=== PATIENT | female | born 1955 | race African-American/Black ===

== ENCOUNTER 2017-12-28 11:58 | Inpatient (IN) | payer MEDICARE, MEDICAID ==
[~2017-12-28] VITALS: Ht 175.3 cm; Wt 78.9 kg
[~2017-12-28 11:58] MED LIST: HYDR12.54 PO; METO25TA6 PO; POTA10TA15 MT
[2017-12-28] MEDS ORDERED: SODIUM CHLORIDE 0.9% 1,000 ML IV ONE (13:22)
[2017-12-28 14:03] LABS: BASOPHILS % 0.8 % (0.0-2.0); EOSINOPHILS % 0.1 % (0.0-5.0); HEMATOCRIT. 37.3 % (36.0-48.0); HEMOGLOBIN. 12.5 g/dL (12.0-16.0); MEAN CORPUSCULAR HEMOGLOBIN 27.1 pg (28.0-32.0); MEAN CORPUSCULAR VOLUME 81.1 fL (81.0-99.0); MEAN PLATELET VOLUME 7.5 fl (7.4-10.4); MONOCYTES % 6.7 % (2.0-8.0); NEUTROPHILS % 66.4 % (40.0-76.0); PLATELET 423 x1000/uL (130-400); RED CELL DISTRIBUTION WIDTH 13.8 % (11.6-14.6)
[2017-12-28 14:10] LABS: INR 1.1; PROTHROMBIN TIME 11.9 sec (9.4-11.6)
[2017-12-28 14:11] LABS: CHLORIDE 101 mEq/L (98-107)
[2017-12-28 14:15] LABS: ETHANOL BLOOD < 10 mg/dL
[2017-12-28] MEDS ORDERED: ASPIRIN 325MG TABLET PO ONE (14:45)
[2017-12-28] MEDS ORDERED: SODIUM CHLORIDE 0.9% 1000ML BAG (SEPSIS BOLUS) IV ONE (14:45)
[2017-12-28] MEDS ORDERED: POTASSIUM CHLORIDE 20MEQ TABLET SR PO NR (15:15)
[2017-12-28] MEDS ORDERED: ENOXAPARIN 40MG/0.4ML SYR SUBCUT SCH (15:30)
[2017-12-28] MEDS ORDERED: DIPHENHYDRAMINE 50MG/ML VIAL IV PRN (15:30)
[2017-12-28] MEDS ORDERED: MORPHINE SULFATE 2 MG/ML CPJ (NOT FOR IM USE) IV PRN (15:30)
[2017-12-28] MEDS ORDERED: DOCUSATE SODIUM 100MG CAPSULE PO PRN (15:30)
[2017-12-28] MEDS ORDERED: HYDROCODONE/ACETAMINOPHEN 5/325MG TABLET PO PRN ×2 (15:30→17:15)
[2017-12-28] MEDS ORDERED: LORAZEPAM 2MG/ML CPJ IV PRN ×2 (15:30→17:15)
[2017-12-28] MEDS ORDERED: CLONIDINE 0.1MG TABLET PO PRN (15:30)
[2017-12-28] MEDS ORDERED: IPRATROPIUM/ALBUTEROL 0.5-3(2.5)MG/3ML NEB INH PRN (16:54)
[2017-12-28] MEDS ORDERED: MAGNESIUM/ALUMINUM HYDROXIDE/SIMETHICONE 30ML UDC PO PRN (16:55)
[2017-12-28] MEDS ORDERED: NA PHOS,M-B/NA PHOS,DI-BA ENEMA 118ML PR PRN (16:55)
[2017-12-28] MEDS ORDERED: GUAIFENESIN 200MG/10ML SUGAR FREE UDC PO PRN (16:55)
[2017-12-28] MEDS ORDERED: ONDANSETRON HCL 4MG/2ML VIAL IV PRN (16:56)
[2017-12-28] MEDS ORDERED: ACETAMINOPHEN 325MG TABLET PO PRN (16:56)
[2017-12-28 16:57] LABS: CHLORIDE 102 mEq/L (98-107)
[2017-12-28 17:27] LABS: CLARITY URINE CLEAR (CLEAR); COLOR URINE YELLOW (YELLOW); KETONES URINE 2+ (NEGATIVE); LEUKOCYTE ESTERASE URINE NEGATIVE (NEGATIVE); NITRITE URINE NEGATIVE (NEGATIVE); OCCULT BLOOD URINE NEGATIVE (NEGATIVE); PROTEIN URINE NEGATIVE (NEGATIVE)
[2017-12-28] MEDS ORDERED: MAGNESIUM 1 G PREMIX 100 ML IV ONE (17:45)
[2017-12-28 17:46] VITALS: BP 126/56
[2017-12-28 17:47] LABS: METHADONE URINE SCREEN NEGATIVE (NEGATIVE)
[2017-12-28 17:48] LABS: *AMPHETAMINES SCREEN URINE NEGATIVE (NEGATIVE); *BARBITURATES SCREEN URINE NEGATIVE (NEGATIVE); *BENZODIAZEPINES SCREEN URINE NEGATIVE (NEGATIVE); *COCAINE SCREEN URINE NEGATIVE (NEGATIVE); CANNABINOID URINE SCREEN NEGATIVE (NEGATIVE); OPIATES URINE SCREEN NEGATIVE (NEGATIVE); PHENCYCLIDINE URINE SCREEN NEGATIVE (NEGATIVE)
[2017-12-28 18:00] VITALS: BP 126/56
[2017-12-28] MEDS: FOLIC ACID 1MG TABLET PO SCH (18:37)
[2017-12-28] MEDS ORDERED: MORPHINE SULFATE 4 MG/ML CPJ (NOT FOR IM USE) IV PRN (18:45)
[2017-12-28 20:00] VITALS: BP 148/83
[2017-12-28] MEDS: ENOXAPARIN 40MG/0.4ML SYR SUBCUT SCH (20:40)
[2017-12-28] MEDS: DEXT 5%/0.45% NACL 1000ML 1,000 ML IV SCH (20:58)
[2017-12-28] MEDS ORDERED: DEXTROSE 50% WATER 50ML SYRINGE IV PRN (21:30)
[2017-12-28] MEDS: CHLORDIAZEPOXIDE 25MG CAPSULE PO SCH (21:58)
[2017-12-28 22:00] VITALS: BP 127/91
[2017-12-29] VITALS (12 sets, daily range): BP systolic 93–135; BP diastolic 50–102
[2017-12-29] MEDS: CHLORDIAZEPOXIDE 25MG CAPSULE PO SCH (06:01)
[2017-12-29] MEDS: BLOOD SUGAR DIAGNOSTIC STRIP TEST SCH ×4 (06:09→21:33)
[2017-12-29] MEDS: INSULIN LISPRO 100 UNITS/ML SUBCUT SCH ×4 (07:20→21:00)
[2017-12-29] MEDS: DEXT 5%/0.45% NACL 1000ML 1,000 ML IV SCH ×2 (08:09→21:39)
[2017-12-29] MEDS: FOLIC ACID 1MG TABLET PO SCH (08:33)
[2017-12-29] MEDS: ASPIRIN 81MG EC TABLET PO SCH (08:33)
[2017-12-29] MEDS ORDERED: ASPIRIN 81MG EC TABLET PO SCH (09:00)
[2017-12-29] MEDS ORDERED: MAGNESIUM 2 G PREMIX 50 ML IV NR (10:00)
[2017-12-29] MEDS ORDERED: POTASSIUM CHLORIDE 20MEQ TABLET SR PO NR (10:00)
[2017-12-29] MEDS: METOPROLOL TARTRATE 50MG TABLET PO SCH ×2 (10:40→21:00)
[2017-12-29] MEDS ORDERED: CHLORDIAZEPOXIDE 25MG CAPSULE PO PRN (13:00)
[2017-12-29] MEDS: ENOXAPARIN 40MG/0.4ML SYR SUBCUT SCH (19:44)
[2017-12-30] VITALS (12 sets, daily range): BP systolic 91–130; BP diastolic 35–87
[2017-12-30] MEDS: BLOOD SUGAR DIAGNOSTIC STRIP TEST SCH ×4 (06:45→21:29)
[2017-12-30 06:47] LABS: BASOPHILS % 0.4 % (0.0-2.0); EOSINOPHILS % 0.1 % (0.0-5.0); HEMATOCRIT. 33.5 % (36.0-48.0); HEMOGLOBIN. 11.3 g/dL (12.0-16.0); LYMPHOCYTES % 39.5 % (20.0-50.0); MEAN CORPUSCULAR HEMOGLOBIN 27.1 pg (28.0-32.0); MEAN CORPUSCULAR VOLUME 80.1 fL (81.0-99.0); MEAN PLATELET VOLUME 8.1 fl (7.4-10.4); MONOCYTES % 7.1 % (2.0-8.0); NEUTROPHILS % 52.9 % (40.0-76.0); PLATELET 334 x1000/uL (130-400); RED BLOOD CELL COUNT 4.19 mill/uL (4.2-5.4)
[2017-12-30 07:08] LABS: CHLORIDE 97 mEq/L (98-107)
[2017-12-30] MEDS: INSULIN LISPRO 100 UNITS/ML SUBCUT SCH ×4 (07:20→21:00)
[2017-12-30 07:22] LABS: CREATINE KINASE MB FRACTION 2.5 ng/mL (0.5-3.6)
[2017-12-30] MEDS ORDERED: POTASSIUM CHLORIDE 20MEQ/PACKET PO SCH (08:15)
[2017-12-30] MEDS: ASPIRIN 81MG EC TABLET PO SCH (08:19)
[2017-12-30] MEDS: FOLIC ACID 1MG TABLET PO SCH (08:19)
[2017-12-30] MEDS: METOPROLOL TARTRATE 50MG TABLET PO SCH ×2 (08:19→21:00)
[2017-12-30] MEDS: DEXT 5%/0.45% NACL 1000ML 1,000 ML IV SCH ×2 (10:28→21:44)
[2017-12-30] MEDS: LISINOPRIL 2.5MG TABLET PO SCH (13:08)
[2017-12-30] MEDS: ENOXAPARIN 40MG/0.4ML SYR SUBCUT SCH (20:02)
[2017-12-30] MEDS: ATORVASTATIN CALCIUM 10MG TABLET PO SCH (21:28)
[2017-12-31] VITALS (10 sets, daily range): BP systolic 104–143; BP diastolic 64–85
[2017-12-31 06:32] LABS: BASOPHILS % 0.2 % (0.0-2.0); EOSINOPHILS % 0.2 % (0.0-5.0); HEMATOCRIT. 32.7 % (36.0-48.0); HEMOGLOBIN. 10.9 g/dL (12.0-16.0); LYMPHOCYTES % 31.1 % (20.0-50.0); MEAN CORPUSCULAR HEMOGLOBIN 26.6 pg (28.0-32.0); MEAN CORPUSCULAR VOLUME 79.5 fL (81.0-99.0); MEAN PLATELET VOLUME 8.2 fl (7.4-10.4); MONOCYTES % 6.7 % (2.0-8.0); NEUTROPHILS % 61.8 % (40.0-76.0); PLATELET 315 x1000/uL (130-400); RED BLOOD CELL COUNT 4.11 mill/uL (4.2-5.4)
[2017-12-31] MEDS: BLOOD SUGAR DIAGNOSTIC STRIP TEST SCH ×4 (06:54→21:09)
[2017-12-31 07:00] LABS: CHLORIDE 98 mEq/L (98-107)
[2017-12-31] MEDS: INSULIN LISPRO 100 UNITS/ML SUBCUT SCH ×4 (07:20→21:00)
[2017-12-31] MEDS: LISINOPRIL 2.5MG TABLET PO SCH (08:11)
[2017-12-31] MEDS: METOPROLOL TARTRATE 50MG TABLET PO SCH ×2 (08:11→21:00)
[2017-12-31] MEDS: FOLIC ACID 1MG TABLET PO SCH (08:11)
[2017-12-31] MEDS: ASPIRIN 81MG EC TABLET PO SCH (08:11)
[2017-12-31] MEDS ORDERED: POTASSIUM CHLORIDE 20MEQ TABLET SR PO SCH ×2 (08:30→13:00)
[2017-12-31] MEDS: DEXT 5%/0.45% NACL 1000ML 1,000 ML IV SCH (13:29)
[2017-12-31 18:30] LABS: BG BASE EXCESS -6.2 mmol/L (-2.0-2.0); BG CARBOXYHEMOGLOBIN 0.3 % (0.5-1.5); BG DEOXYHEMOGLOBIN 1.2 % (0.0-5.0); BG HCO3 ACT 12.7 mmol/L (22.0-26.0); BG METHEMOGLOBIN 0.2 % (0.0-1.5); BG OXYGEN SATURATION 98.8 % (92.0-98.5); BG OXYHEMOGLOBIN 98.3 % (94.0-97.0); BG PH 7.577 (7.350-7.450); BG PO2 144.9 mmHg (75.0-100.0); BG SAMPLE SITE RIGHT RADIAL; BG TOTAL HEMOGLOBIN 12.5 g/dL (12.0-18.0); BG VENT MODE NASAL CANNULA
[2017-12-31 18:41] LABS: BASOPHILS % 0.6 % (0.0-2.0); EOSINOPHILS % 0.2 % (0.0-5.0); HEMATOCRIT. 35.7 % (36.0-48.0); LYMPHOCYTES % 28.5 % (20.0-50.0); MEAN CORPUSCULAR HEMOGLOBIN 26.9 pg (28.0-32.0); MONOCYTES % 6.6 % (2.0-8.0); NEUTROPHILS % 64.1 % (40.0-76.0); PLATELET 343 x1000/uL (130-400); RED BLOOD CELL COUNT 4.46 mill/uL (4.2-5.4); RED CELL DISTRIBUTION WIDTH 13.8 % (11.6-14.6)
[2017-12-31 18:51] LABS: INR 1.1; PARTIAL THROMBOPLASTIN TIME 26.7 sec (23.4-31.0); PROTHROMBIN TIME 11.1 sec (9.4-11.6)
[2017-12-31] MEDS: ENOXAPARIN 40MG/0.4ML SYR SUBCUT SCH (20:20)
[2017-12-31] MEDS: ATORVASTATIN CALCIUM 10MG TABLET PO SCH (21:10)
[2018-01-01] VITALS (12 sets, daily range): BP systolic 89–121; BP diastolic 45–75
[2018-01-01] MEDS ORDERED: MVI, ADULT NO.1 10 ML in DEXT 5%/0.45% NACL 1000ML 1,000 ML IV SCH ×2 (02:00)
[2018-01-01] MEDS: DEXT 5%/0.45% NACL 1000ML 1,000 ML IV SCH ×2 (02:15→20:12)
[2018-01-01] MEDS: BLOOD SUGAR DIAGNOSTIC STRIP TEST SCH ×4 (06:31→20:53)
[2018-01-01 06:55] LABS: CHLORIDE 98 mEq/L (98-107)
[2018-01-01 07:00] LABS: BASOPHILS % 0.3 % (0.0-2.0); EOSINOPHILS % 0.8 % (0.0-5.0); HEMATOCRIT. 32.6 % (36.0-48.0); MEAN CORPUSCULAR HEMOGLOBIN 27.2 pg (28.0-32.0); MEAN CORPUSCULAR VOLUME 80.4 fL (81.0-99.0); MONOCYTES % 5.6 % (2.0-8.0); NEUTROPHILS % 67.3 % (40.0-76.0); PLATELET 297 x1000/uL (130-400); RED BLOOD CELL COUNT 4.05 mill/uL (4.2-5.4); RED CELL DISTRIBUTION WIDTH 14.1 % (11.6-14.6)
[2018-01-01] MEDS: INSULIN LISPRO 100 UNITS/ML SUBCUT SCH ×4 (07:20→20:53)
[2018-01-01] MEDS: FOLIC ACID 1MG TABLET PO SCH (08:40)
[2018-01-01] MEDS: ASPIRIN 81MG EC TABLET PO SCH (08:40)
[2018-01-01] MEDS: METOPROLOL TARTRATE 50MG TABLET PO SCH ×2 (08:43→20:54)
[2018-01-01] MEDS: LISINOPRIL 2.5MG TABLET PO SCH (08:44)
[2018-01-01] MEDS: POTASSIUM CHLORIDE 20MEQ TABLET SR PO SCH (08:48)
[2018-01-01] MEDS ORDERED: VANCOMYCIN 1500MG in DEXTROSE 5% WATER 250ML IV NR (20:00)
[2018-01-01] MEDS: ENOXAPARIN 40MG/0.4ML SYR SUBCUT SCH (20:12)
[2018-01-01] MEDS: ATORVASTATIN CALCIUM 10MG TABLET PO SCH (21:25)
[2018-01-02] VITALS (12 sets, daily range): BP systolic 90–112; BP diastolic 49–66
[2018-01-02] MEDS: DEXT 5%/0.45% NACL 1000ML 1,000 ML IV SCH ×2 (04:55→17:58)
[2018-01-02] MEDS: BLOOD SUGAR DIAGNOSTIC STRIP TEST SCH ×4 (06:50→20:11)
[2018-01-02] MEDS: INSULIN LISPRO 100 UNITS/ML SUBCUT SCH ×4 (07:20→20:26)
[2018-01-02] MEDS ORDERED: VANCOMYCIN 1 G PREMIX 200 ML IV SCH (08:00)
[2018-01-02 08:16] LABS: BASOPHILS % 0.3 % (0.0-2.0); EOSINOPHILS % 0.4 % (0.0-5.0); HEMATOCRIT. 29.4 % (36.0-48.0); HEMOGLOBIN. 9.6 g/dL (12.0-16.0); LYMPHOCYTES % 19.5 % (20.0-50.0); MEAN CORPUSCULAR HEMOGLOBIN 26.5 pg (28.0-32.0); MEAN CORPUSCULAR VOLUME 80.7 fL (81.0-99.0); MEAN PLATELET VOLUME 8.4 fl (7.4-10.4); MONOCYTES % 5.2 % (2.0-8.0); NEUTROPHILS % 74.6 % (40.0-76.0); PLATELET 259 x1000/uL (130-400); RED BLOOD CELL COUNT 3.64 mill/uL (4.2-5.4); RED CELL DISTRIBUTION WIDTH 13.9 % (11.6-14.6)
[2018-01-02] MEDS: ASPIRIN 81MG EC TABLET PO SCH (08:21)
[2018-01-02] MEDS: POTASSIUM CHLORIDE 20MEQ TABLET SR PO SCH (08:21)
[2018-01-02] MEDS: FOLIC ACID 1MG TABLET PO SCH (08:22)
[2018-01-02] MEDS: METOPROLOL TARTRATE 50MG TABLET PO SCH (08:22)
[2018-01-02] MEDS: LISINOPRIL 2.5MG TABLET PO SCH (08:22)
[2018-01-02 08:23] LABS: AMMONIA 17 uMol/L (<32)
[2018-01-02 08:36] LABS: CHLORIDE 101 mEq/L (98-107)
[2018-01-02 08:45] LABS: LDL CHOLESTEROL 32 mg/dL (5-100)
[2018-01-02 08:46] LABS: HDL CHOLESTEROL 25 mg/dL (40-59)
[2018-01-02] MEDS ORDERED: LIDOCAINE HCL/PF 1% 10 MG/ML 5ML VIAL ONE (09:25)
[2018-01-02] MEDS ORDERED: SODIUM BICARBONATE 4% (2.4MEQ) 5ML VIAL IV ONE (09:26)
[2018-01-02 10:29] LABS: BG BASE EXCESS -4.4 mmol/L (-2.0-2.0); BG CARBOXYHEMOGLOBIN 0.2 % (0.5-1.5); BG HCO3 ACT 18.7 mmol/L (22.0-26.0); BG METHEMOGLOBIN 0.1 % (0.0-1.5); BG OXYHEMOGLOBIN 98.7 % (94.0-97.0); BG PCO2 27.8 mmHg (35.0-45.0); BG PH 7.445 (7.350-7.450); BG PO2 152.3 mmHg (75.0-100.0); BG SAMPLE SITE RIGHT RADIAL; BG TOTAL HEMOGLOBIN 10.4 g/dL (12.0-18.0); BG VENT MODE NASAL CANNULA
[2018-01-02] MEDS: VANCOMYCIN 1250MG in DEXTROSE 5% WATER 250ML IV SCH (17:57)
[2018-01-02] MEDS: ENOXAPARIN 40MG/0.4ML SYR SUBCUT SCH (20:22)
[2018-01-02] MEDS: CARVEDILOL 6.25 MG TABLET PO SCH (21:00)
[2018-01-02] MEDS: ATORVASTATIN CALCIUM 10MG TABLET PO SCH (22:31)
[2018-01-03] VITALS (13 sets, daily range): BP systolic 99–127; BP diastolic 50–74
[2018-01-03] MEDS: BLOOD SUGAR DIAGNOSTIC STRIP TEST SCH ×4 (05:48→21:46)
[2018-01-03] MEDS: VANCOMYCIN 1250MG in DEXTROSE 5% WATER 250ML IV SCH (05:50)
[2018-01-03] MEDS: INSULIN LISPRO 100 UNITS/ML SUBCUT SCH ×4 (07:20→21:00)
[2018-01-03] MEDS: FOLIC ACID 1MG TABLET PO SCH (08:16)
[2018-01-03] MEDS: POTASSIUM CHLORIDE 20MEQ TABLET SR PO SCH (08:16)
[2018-01-03] MEDS: ASPIRIN 81MG EC TABLET PO SCH (08:16)
[2018-01-03] MEDS: LISINOPRIL 2.5MG TABLET PO SCH (08:18)
[2018-01-03] MEDS: CARVEDILOL 6.25 MG TABLET PO SCH ×2 (08:18→21:00)
[2018-01-03] MEDS: DEXT 5%/0.45% NACL 1000ML 1,000 ML IV SCH (08:19)
[2018-01-03] MEDS: ATORVASTATIN CALCIUM 10MG TABLET PO SCH (21:52)
[2018-01-03] MEDS: ENOXAPARIN 40MG/0.4ML SYR SUBCUT SCH (21:52)
== END 2018-01-03 22:29 | DRG 280 ==
LOC: ER 12:26 → 3WST 14:43 → EDBEDREQSVC 14:46 → EDBEDREQTM 14:47 → EDBEDREQ 14:47 → ENRESERV 15:02 → ER 17:10
PROVIDERS: ADMIT Internal Medicine; ATTEND Internal Medicine
PROC: 02HV33Z Insertion of Infusion Device into Superior Vena Cava, Percutaneous Approach (ICD-10-PCS; principal; 2018-01-02)
PROC: B5181ZA Fluoroscopy of Superior Vena Cava using Low Osmolar Contrast, Guidance (ICD-10-PCS; 2018-01-02)
PROC: B548ZZA Ultrasonography of Superior Vena Cava, Guidance (ICD-10-PCS; 2018-01-02)
DX: I21.4 Non-ST elevation (NSTEMI) myocardial infarction (principal); G93.40 Encephalopathy, unspecified; F10.239 Alcohol dependence with withdrawal, unspecified; I47.1 Supraventricular tachycardia; I50.20 Unspecified systolic (congestive) heart failure; E87.6 Hypokalemia; E78.5 Hyperlipidemia, unspecified; I11.0 Hypertensive heart disease with heart failure; I25.10 Atherosclerotic heart disease of native coronary artery without angina pectoris; I25.5 Ischemic cardiomyopathy; I25.2 Old myocardial infarction; Z79.899 Other long term (current) drug therapy; Z86.73 Personal history of transient ischemic attack (TIA), and cerebral infarction without residual deficits; Z88.5 Allergy status to narcotic agent
CPT/HCPCS: 36415; 36569; 36600; 51702; 70450; 71045; 76937; 77001; 80048; 80053; 80061; 80305; 81003; 82140; 82375; 82553; 82805; 82962; 83605; 83690; 83735; 84484; 85025; 85384; 85610; 85730; 86850; 86900; 87040; 87077; 87086; 92523; 92610; 93005; 93306; 96360; 96361; 97112; 97162; 97166; 97530; 99291; A6261; C1725; G0482; J1650; J1815; J3370; J3475; J3490; J7030; J7060; A4315

== ENCOUNTER 2019-04-13 18:59 | Inpatient (IN) | payer MEDICARE, MEDICAID ==
[~2019-04-13] VITALS: Ht 176.5 cm; Wt 62.1 kg
[2019-04-13] MEDS ORDERED: SODIUM CHLORIDE 0.9% 1,000 ML IV ONE (20:14)
[2019-04-13 20:36] LABS: BASOPHILS % 0.2 % (0.0-2.0); CHLORIDE 101 mEq/L (98-107); EOSINOPHILS % 0.1 % (0.0-5.0); LYMPHOCYTES % 25.5 % (20.0-50.0); MEAN CORPUSCULAR VOLUME 81.1 fL (81.0-99.0); MEAN PLATELET VOLUME 8.1 fl (7.4-10.4); MONOCYTES % 14.4 % (2.0-8.0); NEUTROPHILS % 59.8 % (40.0-76.0); PLATELET 352 x1000/uL (130-400); RED BLOOD CELL COUNT 4.45 mill/uL (4.2-5.4); RED CELL DISTRIBUTION WIDTH 13.5 % (11.6-14.6)
[2019-04-13] MEDS ORDERED: ASPIRIN 325MG EC TABLET PO ONE (22:45)
[2019-04-13] MEDS ORDERED: ACETAMINOPHEN 325MG TABLET PO ONE (22:45)
[2019-04-13] MEDS ORDERED: LORAZEPAM 2MG/ML CPJ IV PRN (23:15)
[2019-04-13] MEDS ORDERED: IPRATROPIUM/ALBUTEROL 0.5-3(2.5)MG/3ML NEB HHN PRN (23:15)
[2019-04-13] MEDS ORDERED: CLONIDINE 0.1MG TABLET PO PRN (23:15)
[2019-04-13] MEDS ORDERED: GUAIFENESIN 200MG/10ML SUGAR FREE UDC PO PRN (23:15)
[2019-04-13] MEDS ORDERED: HYDROCODONE/ACETAMINOPHEN 10/325MG TABLET PO PRN (23:15)
[2019-04-13] MEDS ORDERED: ONDANSETRON HCL 4MG/2ML INJ IV PRN (23:15)
[2019-04-13] MEDS ORDERED: MORPHINE SULFATE 2 MG/ML CPJ (NOT FOR IM USE) IV PRN (23:15)
[2019-04-13] MEDS ORDERED: NA PHOS,M-B/NA PHOS,DI-BA ENEMA 118ML PR PRN (23:15)
[2019-04-13] MEDS ORDERED: HYDRALAZINE 20MG/ML VIAL IV PRN (23:15)
[2019-04-13] MEDS ORDERED: MAGNESIUM/ALUMINUM HYDROXIDE/SIMETHICONE 30ML UDC PO PRN (23:15)
[2019-04-13] MEDS ORDERED: DIPHENHYDRAMINE 50MG/ML VIAL IV PRN (23:15)
[2019-04-13] MEDS ORDERED: POTASSIUM CHLORIDE 20MEQ TABLET SR PO NR (23:15)
[2019-04-14 02:29] VITALS: BP 100/66
[2019-04-14] MEDS ORDERED: ASPI-1393 PO (02:56)
[2019-04-14] MEDS ORDERED: METO-539 PO (02:56)
[2019-04-14] MEDS ORDERED: ATOR10TA PO (02:56)
[2019-04-14] MEDS ORDERED: FAMO20TA8 PO (02:56)
[2019-04-14] MEDS ORDERED: ASCO500P18 PO (02:56)
[2019-04-14] MEDS ORDERED: TRAM50TA3 PO (02:56)
[2019-04-14] MEDS: ACETAMINOPHEN 325MG TABLET PO PRN ×2 (03:19→12:01)
[2019-04-14 04:00] VITALS: BP 112/79
[2019-04-14] MEDS: SODIUM CHLORIDE 0.9% INJ 3ML FLUSH IVF SCH ×3 (05:47→21:53)
[2019-04-14 06:35] LABS: HEMATOCRIT. 34.9 % (36.0-48.0); HEMOGLOBIN. 11.6 g/dL (12.0-16.0); MEAN CORPUSCULAR HEMOGLOBIN 27.2 pg (28.0-32.0); MEAN CORPUSCULAR VOLUME 82.2 fL (81.0-99.0); MEAN PLATELET VOLUME 8.2 fl (7.4-10.4); PLATELET 304 x1000/uL (130-400); RED BLOOD CELL COUNT 4.25 mill/uL (4.2-5.4); RED CELL DISTRIBUTION WIDTH 13.8 % (11.6-14.6)
[2019-04-14 06:55] LABS: CHLORIDE 106 mEq/L (98-107)
[2019-04-14 07:09] LABS: LDL CHOLESTEROL 44 mg/dL (5-100)
[2019-04-14 07:10] LABS: CREATINE KINASE 109 IU/L (26-192)
[2019-04-14 07:11] LABS: CREATINE KINASE MB FRACTION < 1.0 ng/mL (0.5-3.6); HDL CHOLESTEROL 28 mg/dL (40-59); T4 FREE 1.27 ng/dL (0.76-1.46)
[2019-04-14 08:00] VITALS: BP 105/71
[2019-04-14 12:00] VITALS: BP 110/79
[2019-04-14 16:00] VITALS: BP 108/84
[2019-04-14 16:22] LABS: PLATELET ESTIMATE NORMAL
[2019-04-14 18:18] LABS: CREATINE KINASE 92 IU/L (26-192)
[2019-04-14 18:19] LABS: CREATINE KINASE MB FRACTION < 1.0 ng/mL (0.5-3.6)
[2019-04-14 20:00] VITALS: BP 97/64
[2019-04-15] VITALS (7 sets, daily range): BP systolic 90–121; BP diastolic 62–84
[2019-04-15] MEDS: ACETAMINOPHEN 325MG TABLET PO PRN ×2 (03:29→12:27)
[2019-04-15] MEDS: SODIUM CHLORIDE 0.9% INJ 3ML FLUSH IVF SCH ×3 (06:38→21:28)
[2019-04-15 07:59] LABS: VITAMIN B12 SERUM 1001 pg/mL (211-911)
[2019-04-15] MEDS: ENOXAPARIN 30MG/0.3ML SYR SUBCUT SCH (11:11)
[2019-04-16] VITALS: BP 108/68
[2019-04-16 04:00] VITALS: BP 104/66
[2019-04-16] MEDS: SODIUM CHLORIDE 0.9% INJ 3ML FLUSH IVF SCH ×3 (05:22→20:57)
[2019-04-16 07:17] LABS: HIV SCREEN 4G Non Reactive (Non Reactive)
[2019-04-16 08:00] VITALS: BP 105/71
[2019-04-16] MEDS: CLOPIDOGREL 75MG TABLET PO SCH (09:19)
[2019-04-16] MEDS: ENOXAPARIN 30MG/0.3ML SYR SUBCUT SCH (09:19)
[2019-04-16] MEDS: ACETAMINOPHEN 325MG TABLET PO PRN ×2 (09:30→20:56)
[2019-04-16 12:00] VITALS: BP 110/74
[2019-04-16 16:00] VITALS: BP 99/59
[2019-04-16 20:00] VITALS: BP 102/67
[2019-04-17] VITALS: BP 97/61
[2019-04-17 04:00] VITALS: BP 102/66
[2019-04-17] MEDS: SODIUM CHLORIDE 0.9% INJ 3ML FLUSH IVF SCH ×2 (05:57→22:22)
[2019-04-17 07:44] LABS: BASOPHILS % 0.2 % (0.0-2.0); EOSINOPHILS % 0.1 % (0.0-5.0); HEMATOCRIT. 34.9 % (36.0-48.0); HEMOGLOBIN. 11.4 g/dL (12.0-16.0); LYMPHOCYTES % 15.2 % (20.0-50.0); MEAN CORPUSCULAR HEMOGLOBIN 26.9 pg (28.0-32.0); MEAN CORPUSCULAR VOLUME 82.5 fL (81.0-99.0); MEAN PLATELET VOLUME 7.5 fl (7.4-10.4); MONOCYTES % 7.3 % (2.0-8.0); NEUTROPHILS % 77.2 % (40.0-76.0); PLATELET 500 x1000/uL (130-400); RED BLOOD CELL COUNT 4.23 mill/uL (4.2-5.4); RED CELL DISTRIBUTION WIDTH 13.9 % (11.6-14.6)
[2019-04-17 08:00] VITALS: BP 105/67
[2019-04-17 08:01] LABS: CHLORIDE 103 mEq/L (98-107)
[2019-04-17] MEDS: CLOPIDOGREL 75MG TABLET PO SCH (09:42)
[2019-04-17] MEDS: ENOXAPARIN 30MG/0.3ML SYR SUBCUT SCH (09:42)
[2019-04-17 12:00] VITALS: BP 110/74
[2019-04-17] MEDS: ACETAMINOPHEN 325MG TABLET PO PRN ×2 (14:24→22:23)
[2019-04-17 16:00] VITALS: BP 98/63
[2019-04-17 20:00] VITALS: BP 104/69
[2019-04-18] VITALS: BP 110/68
[2019-04-18] MEDS: LEVOFLOXACIN 500MG PREMIX 100 ML IV SCH (00:35)
[2019-04-18 04:00] VITALS: BP 102/67
[2019-04-18 06:32] LABS: CLARITY URINE TURBID (CLEAR); COLOR URINE YELLOW (YELLOW); KETONES URINE NEGATIVE (NEGATIVE); LEUKOCYTE ESTERASE URINE 3+ (NEGATIVE); NITRITE URINE NEGATIVE (NEGATIVE); OCCULT BLOOD URINE 2+ (NEGATIVE); PROTEIN URINE 2+ (NEGATIVE); SPECIFIC GRAVITY URINE 1.014 (1.005-1.030)
[2019-04-18] MEDS: SODIUM CHLORIDE 0.9% INJ 3ML FLUSH IVF SCH ×3 (06:43→19:51)
[2019-04-18 08:00] VITALS: BP 94/65
[2019-04-18] MEDS: CLOPIDOGREL 75MG TABLET PO SCH (08:56)
[2019-04-18] MEDS: ENOXAPARIN 30MG/0.3ML SYR SUBCUT SCH (08:56)
[2019-04-18] MEDS: ACETAMINOPHEN 325MG TABLET PO PRN ×2 (09:04→19:51)
[2019-04-18 12:00] VITALS: BP 100/62
[2019-04-18 16:00] VITALS: BP 121/76
[2019-04-18 20:00] VITALS: BP 106/63
[2019-04-19 00:13] VITALS: BP 129/75
[2019-04-19] MEDS: LEVOFLOXACIN 500MG PREMIX 100 ML IV SCH (00:26)
[2019-04-19 04:00] VITALS: BP 104/70
[2019-04-19] MEDS: SODIUM CHLORIDE 0.9% INJ 3ML FLUSH IVF SCH ×3 (05:59→21:18)
[2019-04-19 07:49] VITALS: BP 100/60
[2019-04-19] MEDS: ACETAMINOPHEN 325MG TABLET PO PRN ×3 (08:51→21:26)
[2019-04-19] MEDS: ENOXAPARIN 30MG/0.3ML SYR SUBCUT SCH (08:51)
[2019-04-19] MEDS: CLOPIDOGREL 75MG TABLET PO SCH (08:51)
[2019-04-19 12:26] VITALS: BP 110/61
[2019-04-19] MEDS: GABAPENTIN 100MG CAPSULE PO SCH (16:09)
[2019-04-19 16:14] VITALS: BP 88/55
[2019-04-19 20:00] VITALS: BP 114/75
[2019-04-20] VITALS (8 sets, daily range): BP systolic 83–106; BP diastolic 48–66
[2019-04-20] MEDS: LEVOFLOXACIN 500MG PREMIX 100 ML IV SCH (01:02)
[2019-04-20] MEDS ORDERED: HYDROCODONE/ACETAMINOPHEN 5/325MG TABLET PO PRN (04:30)
[2019-04-20] MEDS: SODIUM CHLORIDE 0.9% INJ 3ML FLUSH IVF SCH ×3 (06:31→22:08)
[2019-04-20 07:54] LABS: BASOPHILS % 0.4 % (0.0-2.0); EOSINOPHILS % 0.7 % (0.0-5.0); HEMOGLOBIN. 11.1 g/dL (12.0-16.0); MEAN CORPUSCULAR HEMOGLOBIN 27.2 pg (28.0-32.0); MEAN CORPUSCULAR VOLUME 80.6 fL (81.0-99.0); MEAN PLATELET VOLUME 6.6 fl (7.4-10.4); MONOCYTES % 11.3 % (2.0-8.0); NEUTROPHILS % 55.6 % (40.0-76.0); PLATELET 618 x1000/uL (130-400); RED BLOOD CELL COUNT 4.09 mill/uL (4.2-5.4); RED CELL DISTRIBUTION WIDTH 13.8 % (11.6-14.6)
[2019-04-20 08:16] LABS: CHLORIDE 106 mEq/L (98-107)
[2019-04-20] MEDS: ACETAMINOPHEN 325MG TABLET PO PRN ×2 (09:01→17:57)
[2019-04-20] MEDS: CLOPIDOGREL 75MG TABLET PO SCH (09:01)
[2019-04-20] MEDS: GABAPENTIN 100MG CAPSULE PO SCH ×2 (09:01→17:55)
[2019-04-20] MEDS: DOCUSATE SODIUM 100MG CAPSULE PO PRN ×2 (09:01→17:55)
[2019-04-20] MEDS: ENOXAPARIN 30MG/0.3ML SYR SUBCUT SCH (09:03)
[2019-04-20] MEDS ORDERED: LEVOFLOXACIN 500MG TABLET PO SCH (23:00)
[2019-04-21] VITALS: BP 98/56
[2019-04-21 04:00] VITALS: BP 100/62
[2019-04-21] MEDS: SODIUM CHLORIDE 0.9% INJ 3ML FLUSH IVF SCH ×2 (05:16→14:00)
[2019-04-21 07:37] LABS: BASOPHILS % 0.4 % (0.0-2.0); EOSINOPHILS % 0.4 % (0.0-5.0); HEMATOCRIT. 33.1 % (36.0-48.0); LYMPHOCYTES % 28.1 % (20.0-50.0); MEAN CORPUSCULAR HEMOGLOBIN 27.1 pg (28.0-32.0); MEAN CORPUSCULAR VOLUME 81.7 fL (81.0-99.0); MEAN PLATELET VOLUME 6.3 fl (7.4-10.4); MONOCYTES % 8.7 % (2.0-8.0); NEUTROPHILS % 62.4 % (40.0-76.0); PLATELET 682 x1000/uL (130-400); RED BLOOD CELL COUNT 4.06 mill/uL (4.2-5.4); RED CELL DISTRIBUTION WIDTH 14.3 % (11.6-14.6)
[2019-04-21 08:00] VITALS: BP 103/67
[2019-04-21 08:03] LABS: CHLORIDE 107 mEq/L (98-107)
[2019-04-21 08:09] LABS: PHOSPHORUS 2.5 mg/dL (2.5-4.9)
[2019-04-21 08:10] LABS: FOLIC ACID (FOLATE) SERUM >20 ng/mL ng/mL (>5.38)
[2019-04-21] MEDS: CLOPIDOGREL 75MG TABLET PO SCH (09:20)
[2019-04-21] MEDS: GABAPENTIN 100MG CAPSULE PO SCH ×2 (09:20→16:43)
[2019-04-21] MEDS: ENOXAPARIN 30MG/0.3ML SYR SUBCUT SCH (09:21)
[2019-04-21 12:00] VITALS: BP 110/74
[2019-04-21] MEDS ORDERED: ASPIRIN 81MG EC TABLET PO SCH (14:30)
[2019-04-21 16:00] VITALS: BP 141/95
[2019-04-21 16:40] VITALS: BP 141/95
[2019-04-21] MEDS: DOCUSATE SODIUM 100MG CAPSULE PO PRN (16:43)
[2019-04-21] MEDS: ACETAMINOPHEN 325MG TABLET PO PRN (16:43)
[2019-04-21] MEDS ORDERED: MAGNESIUM OXIDE 400MG TABLET PO SCH (18:00)
== END 2019-04-21 18:44 | DRG 64 ==
LOC: ER 18:59 → 7WST 23:01 → ENRESERV 23:47
PROVIDERS: ADMIT Internal Medicine; ATTEND Internal Medicine
DX: I63.81 Other cerebral infarction due to occlusion or stenosis of small artery (principal); A41.9 Sepsis, unspecified organism; E46 Unspecified protein-calorie malnutrition; N13.30 Unspecified hydronephrosis; E87.1 Hypo-osmolality and hyponatremia; G81.94 Hemiplegia, unspecified affecting left nondominant side; R47.01 Aphasia; E87.6 Hypokalemia; I10 Essential (primary) hypertension; R62.7 Adult failure to thrive; M85.80 Other specified disorders of bone density and structure, unspecified site; K80.20 Calculus of gallbladder without cholecystitis without obstruction; D64.9 Anemia, unspecified; M48.02 Spinal stenosis, cervical region; E78.5 Hyperlipidemia, unspecified; G31.84 Mild cognitive impairment of uncertain or unknown etiology; G90.9 Disorder of the autonomic nervous system, unspecified; I11.9 Hypertensive heart disease without heart failure; I25.10 Atherosclerotic heart disease of native coronary artery without angina pectoris; I34.0 Nonrheumatic mitral (valve) insufficiency; R16.0 Hepatomegaly, not elsewhere classified; R74.0 Nonspecific elevation of levels of transaminase and lactic acid dehydrogenase [LDH]; R47.1 Dysarthria and anarthria; M47.812 Spondylosis without myelopathy or radiculopathy, cervical region; R13.10 Dysphagia, unspecified; Z79.02 Long term (current) use of antithrombotics/antiplatelets; Z79.82 Long term (current) use of aspirin; Z74.01 Bed confinement status; I25.2 Old myocardial infarction; Z86.73 Personal history of transient ischemic attack (TIA), and cerebral infarction without residual deficits; Z79.899 Other long term (current) drug therapy; Z88.5 Allergy status to narcotic agent
CPT/HCPCS: 36415; 70551; 71045; 72141; 73030; 73060; 73070; 73090; 73100; 73120; 76700; 80048; 80061; 81003; 82550; 82553; 82607; 82746; 83735; 83880; 84100; 84439; 84443; 84484; 87077; 87186; 87389; 92523; 92610; 93005; 93306; 93880; 93970; 97110; 97162; 97166; 99285; A4565; A6261; C1893; J1650; J1956; J7030

== ENCOUNTER 2019-09-11 11:44 | Inpatient (IN) | payer MEDICARE, MEDICAID ==
[~2019-09-11] VITALS: Ht 175.3 cm; Wt 85.3 kg
[~2019-09-11 11:44] MED LIST changes: +ASCO500P18 PO; +ASPI-1497 PO; +ATOR10TA PO; +FAMO20TA8 PO; -HYDR12.54 PO; +METO-539 PO; -METO25TA6 PO; -POTA10TA15 MT; +TRAM50TA3 PO
[2019-09-11] MEDS ORDERED: SODIUM CHLORIDE 0.9% 1000ML BAG (SEPSIS BOLUS) IV ONE (12:00)
[2019-09-11 12:08] LABS: BG BASE EXCESS -6.7 mmol/L (-2.0-2.0); BG CARBOXYHEMOGLOBIN 0.1 % (0.5-1.5); BG DEOXYHEMOGLOBIN 4.8 % (0.0-5.0); BG FRACTION INSPIRED OXYGEN 21; BG HCO3 ACT 16.1 mmol/L (22.0-26.0); BG METHEMOGLOBIN 0.3 % (0.0-1.5); BG OXYGEN SATURATION 95.2 % (92.0-98.5); BG OXYHEMOGLOBIN 94.8 % (94.0-97.0); BG PCO2 24.4 mmHg (35.0-45.0); BG PH 7.438 (7.350-7.450); BG PO2 79.4 mmHg (75.0-100.0); BG SAMPLE SITE RIGHT BRACHIAL; BG VENT MODE ROOM AIR
[2019-09-11 12:18] LABS: HEMATOCRIT. 28.6 % (36.0-48.0); HEMOGLOBIN. 9.2 g/dL (12.0-16.0); MEAN CORPUSCULAR HEMOGLOBIN 25.6 pg (28.0-32.0); MEAN CORPUSCULAR VOLUME 79.5 fL (81.0-99.0); MEAN PLATELET VOLUME 7.6 fl (7.4-10.4); PLATELET 517 x1000/uL (130-400); RED CELL DISTRIBUTION WIDTH 14.8 % (11.6-14.6)
[2019-09-11 12:26] LABS: INR 1.1; PROTHROMBIN TIME 11.7 sec (9.6-11.0)
[2019-09-11 12:27] LABS: CHLORIDE 107 mEq/L (98-107)
[2019-09-11] MEDS ORDERED: PIPERACILLIN/TAZ 3.375G PREMIX 50 ML IV ONE (12:30)
[2019-09-11] MEDS ORDERED: NOREPINEPHRINE 4 MG in DEXT 5% WATER 246 ML IV ONE (12:45)
[2019-09-11 12:53] LABS: CLARITY URINE TURBID (CLEAR); COLOR URINE DARK YELLOW (YELLOW); KETONES URINE NEGATIVE (NEGATIVE); LEUKOCYTE ESTERASE URINE 3+ (NEGATIVE); NITRITE URINE NEGATIVE (NEGATIVE); OCCULT BLOOD URINE 3+ (NEGATIVE); PH URINE 5.5 (4.5-8.0); PROTEIN URINE 2+ (NEGATIVE); SPECIFIC GRAVITY URINE 1.019 (1.005-1.030)
[2019-09-11] MEDS: LEVOFLOXACIN 500MG PREMIX 100 ML IV ONE ×2 (13:03→13:20)
[2019-09-11] MEDS: NOREPINEPHRINE 4 MG in DEXT 5% WATER 246 ML IV ONE ×3 (13:14→13:24)
[2019-09-11] MEDS ORDERED: SODIUM BICARBONATE 4% (2.4MEQ) 5ML VIAL IV ONE (13:23)
[2019-09-11] MEDS ORDERED: LIDOCAINE HCL 1% 20ML VIAL (Pyxis) INJ ONE (13:23)
[2019-09-11 13:57] LABS: PLATELET ESTIMATE INCREASED
[2019-09-11] MEDS ORDERED: HYDRALAZINE 20MG/ML VIAL IV PRN (14:00)
[2019-09-11] MEDS ORDERED: CLONIDINE 0.1MG TABLET PO PRN (14:00)
[2019-09-11] MEDS ORDERED: DIPHENHYDRAMINE 50MG/ML VIAL IV PRN (14:00)
[2019-09-11] MEDS ORDERED: LORAZEPAM 2MG/ML CPJ IV PRN (14:00)
[2019-09-11] MEDS ORDERED: DOCUSATE SODIUM 100MG CAPSULE PO PRN (14:00)
[2019-09-11] MEDS ORDERED: MORPHINE SULFATE 2 MG/ML CPJ (NOT FOR IM USE) IV PRN (14:00)
[2019-09-11] MEDS ORDERED: DEXTROSE 50% WATER 50ML SYRINGE IV PRN (14:00)
[2019-09-11] MEDS ORDERED: IPRATROPIUM/ALBUTEROL 0.5-3(2.5)MG/3ML NEB NEB PRN (14:00)
[2019-09-11] MEDS ORDERED: NA PHOS,M-B/NA PHOS,DI-BA ENEMA 118ML PR PRN (14:00)
[2019-09-11] MEDS ORDERED: ONDANSETRON HCL 4MG/2ML INJ IV PRN (14:00)
[2019-09-11] MEDS ORDERED: MAGNESIUM/ALUMINUM HYDROXIDE/SIMETHICONE 30ML UDC PO PRN (14:00)
[2019-09-11] MEDS ORDERED: PIPERACILLIN/TAZ 3.375G PREMIX 50 ML IV SCH (14:00)
[2019-09-11] MEDS ORDERED: NOREPINEPHRINE 4MG/250ML PMX 250 ML IV ONE (14:00)
[2019-09-11] MEDS ORDERED: GUAIFENESIN 200MG/10ML SUGAR FREE UDC PO PRN (14:00)
[2019-09-11] MEDS ORDERED: VANCOMYCIN 1 G PREMIX 200 ML IV SCH (15:00)
[2019-09-11 15:35] LABS: CREATINE KINASE 469 IU/L (26-192)
[2019-09-11 15:36] LABS: CREATINE KINASE MB FRACTION < 1.0 ng/mL (0.5-3.6)
[2019-09-11] MEDS ORDERED: NOREPINEPHRINE 4MG/250ML PMX 250 ML IV PRN (22:00)
[2019-09-11 23:40] LABS: CREATINE KINASE MB FRACTION 1.9 ng/mL (0.5-3.6)
[2019-09-12] VITALS (86 sets, daily range): BP systolic 66–142; BP diastolic 39–102
[2019-09-12] MEDS: DEXT 5%/0.9% NACL 1,000 ML IV SCH ×3 (01:00→16:14)
[2019-09-12] MEDS: PIPERACILLIN/TAZOBACTAM 2.25 G in DEXTROSE 5% WATER 50 ML IV SCH ×3 (02:56→18:00)
[2019-09-12] MEDS: NOREPINEPHRINE 4 MG in DEXTROSE 5% WATER 250 ML IV PRN ×2 (03:10→07:35)
[2019-09-12 06:00] LABS: HEMOGLOBIN. 9.9 g/dL (12.0-16.0); MEAN CORPUSCULAR VOLUME 79.1 fL (81.0-99.0); MEAN PLATELET VOLUME 7.8 fl (7.4-10.4); PLATELET 476 x1000/uL (130-400); RED CELL DISTRIBUTION WIDTH 14.9 % (11.6-14.6)
[2019-09-12] MEDS: SODIUM CHLORIDE 0.9% INJ 3ML FLUSH IVF SCH ×3 (06:00→22:00)
[2019-09-12 06:07] LABS: CHLORIDE 109 mEq/L (98-107)
[2019-09-12 06:18] LABS: PHOSPHORUS 2.3 mg/dL (2.5-4.9)
[2019-09-12 06:28] LABS: HEPATITIS B SURFACE ANTIGEN NEGATIVE
[2019-09-12] MEDS ORDERED: DIGOXIN 500MCG/2ML AMP IV SCH (08:00)
[2019-09-12] MEDS: ENOXAPARIN 30MG/0.3ML SYR SUBCUT SCH (09:00)
[2019-09-12] MEDS ORDERED: VANCOMYCIN 750 MG PREMIX 150 ML IV SCH (10:00)
[2019-09-12] MEDS ORDERED: SODIUM CHLORIDE 0.9% 100 ML IV ONE (11:15)
[2019-09-12] MEDS ORDERED: POTASSIUM PHOS,M-BASIC-D-BASIC 20 MMOL in DEXT 5% WATER 243.3333 ML IV SCH (12:00)
[2019-09-12] MEDS: PHENYLEPHRINE 40 MG in DEXT 5% WATER 246 ML IV PRN ×2 (14:21→17:46)
[2019-09-12] MEDS ORDERED: CLOP75TA33 PO (15:40)
[2019-09-12] MEDS ORDERED: GABA-529 MT (15:41)
[2019-09-12] MEDS ORDERED: RANI150C12 PO (15:41)
[2019-09-12 17:31] LABS: PLATELET ESTIMATE INCREASED
[2019-09-13] VITALS (92 sets, daily range): BP systolic 80–158; BP diastolic 48–71
[2019-09-13] MEDS: PIPERACILLIN/TAZOBACTAM 2.25 G in DEXTROSE 5% WATER 50 ML IV SCH ×3 (01:03→18:41)
[2019-09-13] MEDS: DEXT 5%/0.9% NACL 1,000 ML IV SCH ×2 (02:58→11:09)
[2019-09-13] MEDS: PHENYLEPHRINE 40 MG in DEXT 5% WATER 246 ML IV PRN (04:10)
[2019-09-13 06:05] LABS: PHOSPHORUS 2.5 mg/dL (2.5-4.9)
[2019-09-13 06:07] LABS: BASOPHILS % 0.7 % (0.0-2.0); EOSINOPHILS % 0.6 % (0.0-5.0); HEMATOCRIT. 25.7 % (36.0-48.0); HEMOGLOBIN. 8.3 g/dL (12.0-16.0); LYMPHOCYTES % 8.2 % (20.0-50.0); MEAN CORPUSCULAR VOLUME 78.1 fL (81.0-99.0); MEAN PLATELET VOLUME 8.1 fl (7.4-10.4); MONOCYTES % 4.9 % (2.0-8.0); NEUTROPHILS % 85.6 % (40.0-76.0); PLATELET 368 x1000/uL (130-400); RED CELL DISTRIBUTION WIDTH 15.1 % (11.6-14.6)
[2019-09-13] MEDS: SODIUM CHLORIDE 0.9% INJ 3ML FLUSH IVF SCH ×3 (06:22→22:45)
[2019-09-13] MEDS: ENOXAPARIN 30MG/0.3ML SYR SUBCUT SCH (09:58)
[2019-09-13 10:50] LABS: BG BASE EXCESS -8.5 mmol/L (-2.0-2.0); BG CARBOXYHEMOGLOBIN 0.4 % (0.5-1.5); BG HCO3 ACT 15.8 mmol/L (22.0-26.0); BG METHEMOGLOBIN 0.3 % (0.0-1.5); BG OXYHEMOGLOBIN 94.3 % (94.0-97.0); BG PH 7.368 (7.350-7.450); BG PO2 70.5 mmHg (75.0-100.0); BG SAMPLE SITE RIGHT RADIAL; BG TOTAL HEMOGLOBIN 9.2 g/dL (12.0-18.0); BG VENT MODE ROOM AIR
[2019-09-13] MEDS ORDERED: POTASSIUM PHOS,M-BASIC-D-BASIC 15 MMOL in DEXT 5% WATER 245 ML IV SCH (11:00)
[2019-09-13] MEDS: ACETAMINOPHEN 325MG TABLET PO PRN (12:30)
[2019-09-13] MEDS: DOPAMINE 400MG/250ML PREMIX 250 ML IV PRN (14:56)
[2019-09-14] VITALS (94 sets, daily range): BP systolic 64–162; BP diastolic 39–93
[2019-09-14] MEDS: ACETAMINOPHEN 325MG TABLET PO PRN ×2 (00:14→08:41)
[2019-09-14] MEDS: DEXT 5%/0.9% NACL 1,000 ML IV SCH ×3 (00:14→17:53)
[2019-09-14] MEDS: PIPERACILLIN/TAZOBACTAM 2.25 G in DEXTROSE 5% WATER 50 ML IV SCH ×2 (02:47→09:27)
[2019-09-14 05:56] LABS: PHOSPHORUS 3.7 mg/dL (2.5-4.9)
[2019-09-14] MEDS: DOPAMINE 400MG/250ML PREMIX 250 ML IV PRN ×2 (06:39→18:06)
[2019-09-14 06:58] LABS: BASOPHILS % 0.8 % (0.0-2.0); EOSINOPHILS % 1.1 % (0.0-5.0); HEMATOCRIT. 27.1 % (36.0-48.0); HEMOGLOBIN. 8.9 g/dL (12.0-16.0); LYMPHOCYTES % 10.6 % (20.0-50.0); MEAN CORPUSCULAR HEMOGLOBIN 25.5 pg (28.0-32.0); MEAN CORPUSCULAR VOLUME 77.9 fL (81.0-99.0); MEAN PLATELET VOLUME 8.3 fl (7.4-10.4); MONOCYTES % 5.5 % (2.0-8.0); PLATELET 392 x1000/uL (130-400); RED BLOOD CELL COUNT 3.48 mill/uL (4.2-5.4); RED CELL DISTRIBUTION WIDTH 15.3 % (11.6-14.6)
[2019-09-14] MEDS ORDERED: POTASSIUM CHLORIDE 20MEQ TABLET SR PO NR (07:45)
[2019-09-14] MEDS: ENOXAPARIN 30MG/0.3ML SYR SUBCUT SCH (08:41)
[2019-09-14] MEDS: CITRIC ACID/SODIUM CITRATE SOLN 30ML UDC PO SCH ×3 (08:41→17:09)
[2019-09-14] MEDS: MORPHINE SULFATE 2 MG/ML CPJ (NOT FOR IM USE) IV PRN (10:23)
[2019-09-14] MEDS ORDERED: VANCOMYCIN 1 G PREMIX 200 ML IV SCH (11:00)
[2019-09-14] MEDS: SODIUM CHLORIDE 0.9% INJ 3ML FLUSH IVF SCH ×2 (14:00→22:00)
[2019-09-14] MEDS: CEFAZOLIN 1000MG PREMIX 50 ML IV SCH (18:05)
[2019-09-14] MEDS: PHENYLEPHRINE 40 MG in DEXT 5% WATER 246 ML IV PRN (19:26)
[2019-09-15] VITALS (82 sets, daily range): BP systolic 86–117; BP diastolic 47–66
[2019-09-15] MEDS: DEXT 5%/0.9% NACL 1,000 ML IV SCH ×4 (02:46→20:20)
[2019-09-15] MEDS: MORPHINE SULFATE 2 MG/ML CPJ (NOT FOR IM USE) IV PRN ×2 (03:16→14:26)
[2019-09-15] MEDS: CEFAZOLIN 1000MG PREMIX 50 ML IV SCH ×2 (04:12→16:37)
[2019-09-15 05:43] LABS: BASOPHILS % 0.6 % (0.0-2.0); EOSINOPHILS % 1.3 % (0.0-5.0); HEMATOCRIT. 26.4 % (36.0-48.0); HEMOGLOBIN. 8.8 g/dL (12.0-16.0); LYMPHOCYTES % 8.9 % (20.0-50.0); MEAN CORPUSCULAR HEMOGLOBIN 25.8 pg (28.0-32.0); MEAN CORPUSCULAR VOLUME 77.9 fL (81.0-99.0); MEAN PLATELET VOLUME 8.1 fl (7.4-10.4); MONOCYTES % 4.3 % (2.0-8.0); NEUTROPHILS % 84.9 % (40.0-76.0); PLATELET 427 x1000/uL (130-400); RED CELL DISTRIBUTION WIDTH 15.4 % (11.6-14.6)
[2019-09-15 06:05] LABS: PHOSPHORUS 2.3 mg/dL (2.5-4.9)
[2019-09-15] MEDS: SODIUM CHLORIDE 0.9% INJ 3ML FLUSH IVF SCH ×3 (06:06→22:00)
[2019-09-15] MEDS: ENOXAPARIN 30MG/0.3ML SYR SUBCUT SCH (09:18)
[2019-09-15] MEDS: CITRIC ACID/SODIUM CITRATE SOLN 30ML UDC PO SCH ×3 (09:18→16:37)
[2019-09-15] MEDS ORDERED: POTASSIUM PHOS,M-BASIC-D-BASIC 20 MMOL in DEXT 5% WATER 243.3333 ML IV NR (10:00)
[2019-09-16] VITALS (30 sets, daily range): BP systolic 92–130; BP diastolic 50–71
[2019-09-16] MEDS: DEXT 5%/0.9% NACL 1,000 ML IV SCH (03:39)
[2019-09-16] MEDS: CEFAZOLIN 1000MG PREMIX 50 ML IV SCH ×2 (04:28→18:25)
[2019-09-16 05:11] LABS: BASOPHILS % 0.6 % (0.0-2.0); EOSINOPHILS % 1.5 % (0.0-5.0); HEMATOCRIT. 23.4 % (36.0-48.0); HEMOGLOBIN. 7.8 g/dL (12.0-16.0); LYMPHOCYTES % 13.2 % (20.0-50.0); MEAN CORPUSCULAR HEMOGLOBIN 25.5 pg (28.0-32.0); MEAN CORPUSCULAR VOLUME 76.9 fL (81.0-99.0); MEAN PLATELET VOLUME 8.2 fl (7.4-10.4); MONOCYTES % 5.5 % (2.0-8.0); NEUTROPHILS % 79.2 % (40.0-76.0); PLATELET 407 x1000/uL (130-400); RED BLOOD CELL COUNT 3.04 mill/uL (4.2-5.4); RED CELL DISTRIBUTION WIDTH 15.5 % (11.6-14.6)
[2019-09-16 05:19] LABS: PHOSPHORUS 2.8 mg/dL (2.5-4.9)
[2019-09-16] MEDS: SODIUM CHLORIDE 0.9% INJ 3ML FLUSH IVF SCH ×3 (06:00→21:07)
[2019-09-16] MEDS: CITRIC ACID/SODIUM CITRATE SOLN 30ML UDC PO SCH ×3 (09:14→17:00)
[2019-09-16] MEDS: DEXT 5%/0.45% NACL 1000ML 1,000 ML IV SCH (09:14)
[2019-09-16] MEDS: ENOXAPARIN 30MG/0.3ML SYR SUBCUT SCH (09:14)
[2019-09-16] MEDS: POTASSIUM CHLORIDE 20MEQ/PACKET PO SCH ×2 (09:14→17:50)
[2019-09-17] VITALS: BP 124/62
[2019-09-17] MEDS: DEXT 5%/0.45% NACL 1000ML 1,000 ML IV SCH ×2 (00:10→12:26)
[2019-09-17] MEDS: CEFAZOLIN 1000MG PREMIX 50 ML IV SCH ×2 (03:58→17:37)
[2019-09-17 04:00] VITALS: BP 117/66
[2019-09-17] MEDS: SODIUM CHLORIDE 0.9% INJ 3ML FLUSH IVF SCH ×3 (06:00→21:15)
[2019-09-17 06:22] LABS: BASOPHILS % 0.6 % (0.0-2.0); EOSINOPHILS % 1.9 % (0.0-5.0); HEMATOCRIT. 22.1 % (36.0-48.0); HEMOGLOBIN. 7.3 g/dL (12.0-16.0); LYMPHOCYTES % 14.3 % (20.0-50.0); MEAN CORPUSCULAR HEMOGLOBIN 25.2 pg (28.0-32.0); MEAN CORPUSCULAR VOLUME 76.7 fL (81.0-99.0); MEAN PLATELET VOLUME 7.8 fl (7.4-10.4); MONOCYTES % 5.3 % (2.0-8.0); NEUTROPHILS % 77.9 % (40.0-76.0); PLATELET 434 x1000/uL (130-400); RED BLOOD CELL COUNT 2.88 mill/uL (4.2-5.4); RED CELL DISTRIBUTION WIDTH 15.5 % (11.6-14.6)
[2019-09-17 07:08] LABS: PHOSPHORUS 2.7 mg/dL (2.5-4.9)
[2019-09-17 08:00] VITALS: BP 115/64
[2019-09-17] MEDS: POTASSIUM CHLORIDE 20MEQ/PACKET PO SCH ×2 (09:36→17:36)
[2019-09-17] MEDS: ENOXAPARIN 30MG/0.3ML SYR SUBCUT SCH (09:36)
[2019-09-17] MEDS: CITRIC ACID/SODIUM CITRATE SOLN 30ML UDC PO SCH ×3 (09:39→17:00)
[2019-09-17 12:00] VITALS: BP 124/71
[2019-09-17] MEDS ORDERED: MAGNESIUM 2 G PREMIX 50 ML IV SCH (12:00)
[2019-09-17 16:00] VITALS: BP 122/72
[2019-09-17 20:00] VITALS: BP 131/75
[2019-09-18] VITALS (9 sets, daily range): BP systolic 111–143; BP diastolic 58–79
[2019-09-18] MEDS: CEFAZOLIN 1000MG PREMIX 50 ML IV SCH ×2 (04:22→16:00)
[2019-09-18] MEDS: DEXT 5%/0.45% NACL 1000ML 1,000 ML IV SCH (04:22)
[2019-09-18] MEDS: SODIUM CHLORIDE 0.9% INJ 3ML FLUSH IVF SCH ×3 (04:22→23:46)
[2019-09-18 05:13] LABS: BASOPHILS % 0.7 % (0.0-2.0); EOSINOPHILS % 1.5 % (0.0-5.0); HEMATOCRIT. 21.4 % (36.0-48.0); HEMOGLOBIN. 7.1 g/dL (12.0-16.0); LYMPHOCYTES % 20.5 % (20.0-50.0); MEAN CORPUSCULAR HEMOGLOBIN 25.6 pg (28.0-32.0); MEAN CORPUSCULAR VOLUME 76.8 fL (81.0-99.0); MEAN PLATELET VOLUME 7.6 fl (7.4-10.4); MONOCYTES % 5.4 % (2.0-8.0); NEUTROPHILS % 71.9 % (40.0-76.0); PLATELET 495 x1000/uL (130-400); RED BLOOD CELL COUNT 2.79 mill/uL (4.2-5.4); RED CELL DISTRIBUTION WIDTH 15.5 % (11.6-14.6)
[2019-09-18 06:19] LABS: PHOSPHORUS 2.8 mg/dL (2.5-4.9)
[2019-09-18] MEDS: POTASSIUM CHLORIDE 20MEQ/PACKET PO SCH ×2 (10:02→18:24)
[2019-09-18] MEDS: ENOXAPARIN 30MG/0.3ML SYR SUBCUT SCH (10:02)
[2019-09-18] MEDS: CITRIC ACID/SODIUM CITRATE SOLN 30ML UDC PO SCH ×3 (10:03→17:00)
[2019-09-18 21:51] LABS: HEMOGLOBIN 9.3 g/dL (12.0-16.0); MEAN CORPUSCULAR HEMOGLOBIN 26.3 pg (28.0-32.0); PLATELET 549 x1000/uL (130-400); RED BLOOD CELL COUNT 3.54 mill/uL (4.2-5.4)
[2019-09-19] VITALS: BP 129/64
[2019-09-19 04:00] VITALS: BP 122/65
[2019-09-19] MEDS: CEFAZOLIN 1000MG PREMIX 50 ML IV SCH ×2 (04:54→16:51)
[2019-09-19] MEDS: SODIUM CHLORIDE 0.9% INJ 3ML FLUSH IVF SCH ×2 (06:02→16:36)
[2019-09-19 07:10] LABS: BASOPHILS % 0.7 % (0.0-2.0); HEMATOCRIT. 26.2 % (36.0-48.0); HEMOGLOBIN. 8.9 g/dL (12.0-16.0); LYMPHOCYTES % 18.7 % (20.0-50.0); MEAN CORPUSCULAR HEMOGLOBIN 26.7 pg (28.0-32.0); MEAN PLATELET VOLUME 7.6 fl (7.4-10.4); MONOCYTES % 4.6 % (2.0-8.0); PLATELET 552 x1000/uL (130-400); RED BLOOD CELL COUNT 3.32 mill/uL (4.2-5.4); RED CELL DISTRIBUTION WIDTH 16.9 % (11.6-14.6)
[2019-09-19 08:00] VITALS: BP 136/78
[2019-09-19] MEDS: CITRIC ACID/SODIUM CITRATE SOLN 30ML UDC PO SCH ×3 (08:57→16:58)
[2019-09-19] MEDS: POTASSIUM CHLORIDE 20MEQ/PACKET PO SCH ×2 (08:57→16:51)
[2019-09-19] MEDS: ENOXAPARIN 30MG/0.3ML SYR SUBCUT SCH (08:57)
[2019-09-19 12:00] VITALS: BP 130/66
[2019-09-19 14:49] VITALS: BP 142/73
[2019-09-19 16:00] VITALS: BP 142/73
== END 2019-09-19 21:10 | DRG 871 ==
LOC: ER 11:44 → MICUSO 13:04 → EDBEDREQ 13:07 → EDBEDREQTM 13:07 → ENRESERV 23:02 → 7WST 09-16 17:08
PROVIDERS: ADMIT Internal Medicine; ATTEND Internal Medicine
PROC: 02H633Z Insertion of Infusion Device into Right Atrium, Percutaneous Approach (ICD-10-PCS; principal; 2019-09-11)
PROC: B548ZZA Ultrasonography of Superior Vena Cava, Guidance (ICD-10-PCS; 2019-09-11)
PROC: 30233N1 Transfusion of Nonautologous Red Blood Cells into Peripheral Vein, Percutaneous Approach (ICD-10-PCS; 2019-09-18)
DX: A41.50 Gram-negative sepsis, unspecified (principal); R65.21 Severe sepsis with septic shock; N17.0 Acute kidney failure with tubular necrosis; E43 Unspecified severe protein-calorie malnutrition; I21.4 Non-ST elevation (NSTEMI) myocardial infarction; N39.0 Urinary tract infection, site not specified; E87.2 Acidosis; I47.1 Supraventricular tachycardia; I69.351 Hemiplegia and hemiparesis following cerebral infarction affecting right dominant side; E86.0 Dehydration; R74.0 Nonspecific elevation of levels of transaminase and lactic acid dehydrogenase [LDH]; I25.10 Atherosclerotic heart disease of native coronary artery without angina pectoris; N18.1 Chronic kidney disease, stage 1; I12.9 Hypertensive chronic kidney disease with stage 1 through stage 4 chronic kidney disease, or unspecified chronic kidney disease; E11.22 Type 2 diabetes mellitus with diabetic chronic kidney disease; D50.9 Iron deficiency anemia, unspecified; E11.65 Type 2 diabetes mellitus with hyperglycemia; H54.61 Unqualified visual loss, right eye, normal vision left eye; L89.610 Pressure ulcer of right heel, unstageable; L89.620 Pressure ulcer of left heel, unstageable; E78.5 Hyperlipidemia, unspecified; E83.39 Other disorders of phosphorus metabolism; S30.810A Abrasion of lower back and pelvis, initial encounter; X58.XXXA Exposure to other specified factors, initial encounter; B96.4 Proteus (mirabilis) (morganii) as the cause of diseases classified elsewhere; E87.6 Hypokalemia; M48.02 Spinal stenosis, cervical region; Z88.6 Allergy status to analgesic agent; Z74.01 Bed confinement status; I25.2 Old myocardial infarction; Z79.82 Long term (current) use of aspirin; Z79.899 Other long term (current) drug therapy; Z68.27 Body mass index [BMI] 27.0-27.9, adult; Y93.89 Activity, other specified; Y92.89 Other specified places as the place of occurrence of the external cause; Y99.8 Other external cause status
CPT/HCPCS: 36415; 36600; 71045; 73090; 76770; 76937; 80048; 80053; 80202; 81003; 82270; 82375; 82550; 82553; 82805; 82962; 83036; 83605; 83735; 83880; 84100; 84134; 84145; 84484; 85025; 85027; 85379; 86803; 86850; 86900; 86920; 87077; 87186; 87340; 92610; 93005; 93306; 93970; 96365; 97162; 97166; 99291; C1725; J0690; J1160; J1265; J1650; J1956; J2270; J2370; J2543; J3370; J3475; J3490; J7030; J7042; J7060; P9016

== ENCOUNTER 2020-12-01 14:13 | Inpatient (IN) | payer MEDICARE, MEDICAID ==
[~2020-12-01] VITALS: Ht 177.8 cm; Wt 83.9 kg
[~2020-12-01 14:13] MED LIST changes: +CLOP75TA33 PO; +GABA-529 MT; +RANI150C12 PO
[2020-12-01 15:06] LABS: BASOPHILS % 0.4 % (0.0-2.0); EOSINOPHILS % 1.5 % (0.0-5.0); HEMOGLOBIN. 10.7 g/dL (12.0-16.0); LYMPHOCYTES % 37.6 % (20.0-50.0); MEAN CORPUSCULAR HEMOGLOBIN 27.7 pg (28.0-32.0); MEAN CORPUSCULAR VOLUME 82.7 fL (81.0-99.0); MEAN PLATELET VOLUME 7.1 fl (7.4-10.4); MONOCYTES % 9.3 % (2.0-8.0); NEUTROPHILS % 51.2 % (40.0-76.0); PLATELET 275 x1000/uL (130-400); RED BLOOD CELL COUNT 3.87 mill/uL (4.2-5.4); RED CELL DISTRIBUTION WIDTH 13.1 % (11.6-14.6)
[2020-12-01 15:14] LABS: CHLORIDE 110 mEq/L (98-107)
[2020-12-01 15:18] LABS: PROTHROMBIN TIME 10.9 sec (9.6-11.0)
[2020-12-01] MEDS ORDERED: TETRACAINE 0.5% OPHTH DROPS 4ML LEFTEYE ONE (16:45)
[2020-12-01] MEDS ORDERED: IPRATROPIUM/ALBUTEROL 0.5-3(2.5)MG/3ML NEB NEB PRN (19:15)
[2020-12-01] MEDS ORDERED: ACETAMINOPHEN 325MG TABLET PO PRN ×2 (19:15)
[2020-12-01] MEDS ORDERED: DOCUSATE SODIUM 100MG CAPSULE PO PRN (19:15)
[2020-12-01] MEDS ORDERED: NITROGLYCERIN 0.4MG TABLET SL SL PRN (19:15)
[2020-12-01] MEDS ORDERED: MAGNESIUM/ALUMINUM HYDROXIDE/SIMETHICONE 30ML UDC PO PRN (19:15)
[2020-12-01] MEDS ORDERED: ZOLPIDEM TARTRATE 5MG TABLET PO PRN (19:15)
[2020-12-01] MEDS ORDERED: CLONIDINE 0.1MG TABLET PO PRN (19:15)
[2020-12-01] MEDS ORDERED: GUAIFENESIN 200MG/10ML SUGAR FREE UDC PO PRN (19:15)
[2020-12-01 19:36] LABS: TOTAL IRON BINDING CAPACITY 221 ug/dL (250-450)
[2020-12-01] MEDS ORDERED: ENOXAPARIN 40MG/0.4ML SYR SUBCUT SCH (20:00)
[2020-12-01 20:01] LABS: FOLIC ACID (FOLATE) SERUM 15.1 ng/mL (>5.38)
[2020-12-01] MEDS ORDERED: IOHEXOL-350 100 ML BOTTLE ONE (22:51)
[2020-12-02 00:05] LABS: CREATINE KINASE 89 IU/L (26-192)
[2020-12-02 00:07] LABS: CREATINE KINASE MB FRACTION < 1.0 ng/mL (0.5-3.6)
[2020-12-02 04:00] VITALS: BP 120/74
[2020-12-02 04:47] VITALS: BP 118/76
[2020-12-02 08:00] VITALS: BP 97/69
[2020-12-02] MEDS ORDERED: PNEUMOCOCCAL 23-VAL P-SAC VAC 0.5 ML IM ONE (08:00)
[2020-12-02 08:17] LABS: BASOPHILS % 0.4 % (0.0-2.0); EOSINOPHILS % 1.6 % (0.0-5.0); HEMATOCRIT. 38.7 % (36.0-48.0); LYMPHOCYTES % 38.7 % (20.0-50.0); MEAN CORPUSCULAR HEMOGLOBIN 27.2 pg (28.0-32.0); MEAN CORPUSCULAR VOLUME 80.8 fL (81.0-99.0); MEAN PLATELET VOLUME 7.6 fl (7.4-10.4); MONOCYTES % 7.5 % (2.0-8.0); NEUTROPHILS % 51.8 % (40.0-76.0); PLATELET 341 x1000/uL (130-400); RED BLOOD CELL COUNT 4.79 mill/uL (4.2-5.4); RED CELL DISTRIBUTION WIDTH 13.3 % (11.6-14.6)
[2020-12-02] MEDS: CLOPIDOGREL 75MG TABLET PO SCH (08:23)
[2020-12-02] MEDS: ASCORBIC ACID 500 MG TABLET PO SCH ×2 (08:23→20:01)
[2020-12-02] MEDS: CHOLECALCIFEROL (D3) 1000 UNIT TABLET PO SCH (08:23)
[2020-12-02] MEDS: TRAMADOL 50MG TABLET PO PRN (08:24)
[2020-12-02] MEDS: ZINC SULFATE 220 MG ( 50 ) CAPSULE PO SCH (08:25)
[2020-12-02] MEDS: FAMOTIDINE 20MG TABLET PO SCH ×2 (08:25→20:02)
[2020-12-02 08:28] LABS: CHLORIDE 108 mEq/L (98-107)
[2020-12-02 08:34] LABS: PHOSPHORUS 3.2 mg/dL (2.5-4.9)
[2020-12-02 08:36] LABS: LDL CHOLESTEROL 69 mg/dL (5-100)
[2020-12-02 08:37] LABS: CREATINE KINASE 72 IU/L (26-192); CREATINE KINASE MB FRACTION < 1.0 ng/mL (0.5-3.6); HDL CHOLESTEROL 51 mg/dL (40-59)
[2020-12-02 12:00] VITALS: BP 101/66
[2020-12-02] MEDS: ENOXAPARIN 40MG/0.4ML SYR SUBCUT SCH (12:36)
[2020-12-02 16:00] VITALS: BP 110/74
[2020-12-02 20:00] VITALS: BP 104/62
[2020-12-02] MEDS: ATORVASTATIN CALCIUM 10MG TABLET PO SCH (20:01)
[2020-12-03] VITALS: BP 111/60
[2020-12-03 04:00] VITALS: BP 117/69
[2020-12-03] MEDS: TRAMADOL 50MG TABLET PO PRN (06:50)
[2020-12-03 08:00] VITALS: BP 105/69
[2020-12-03] MEDS: ASCORBIC ACID 500 MG TABLET PO SCH ×2 (09:30→20:42)
[2020-12-03] MEDS: CHOLECALCIFEROL (D3) 1000 UNIT TABLET PO SCH (09:31)
[2020-12-03] MEDS: CLOPIDOGREL 75MG TABLET PO SCH (09:31)
[2020-12-03] MEDS: ZINC SULFATE 220 MG ( 50 ) CAPSULE PO SCH (09:31)
[2020-12-03] MEDS: FAMOTIDINE 20MG TABLET PO SCH ×2 (09:32→20:42)
[2020-12-03 12:00] VITALS: BP 110/71
[2020-12-03] MEDS: ENOXAPARIN 40MG/0.4ML SYR SUBCUT SCH (14:19)
[2020-12-03 16:00] VITALS: BP 122/68
[2020-12-03 20:00] VITALS: BP 101/66
[2020-12-03] MEDS: ATORVASTATIN CALCIUM 10MG TABLET PO SCH (20:43)
[2020-12-04] VITALS: BP 118/60
[2020-12-04 04:00] VITALS: BP 107/69
[2020-12-04 08:00] VITALS: BP 119/77
[2020-12-04] MEDS: ZINC SULFATE 220 MG ( 50 ) CAPSULE PO SCH (08:53)
[2020-12-04] MEDS: CHOLECALCIFEROL (D3) 1000 UNIT TABLET PO SCH (08:53)
[2020-12-04] MEDS: ASCORBIC ACID 500 MG TABLET PO SCH ×2 (08:54→21:52)
[2020-12-04] MEDS: FAMOTIDINE 20MG TABLET PO SCH ×2 (08:54→21:52)
[2020-12-04] MEDS: CLOPIDOGREL 75MG TABLET PO SCH (08:54)
[2020-12-04] MEDS: ONDANSETRON HCL 4MG/2ML INJ IV PRN (09:09)
[2020-12-04] MEDS: ENOXAPARIN 40MG/0.4ML SYR SUBCUT SCH (11:39)
[2020-12-04 12:00] VITALS: BP 124/68
[2020-12-04 16:00] VITALS: BP 118/63
[2020-12-04 20:00] VITALS: BP 99/65
[2020-12-04] MEDS: ATORVASTATIN CALCIUM 10MG TABLET PO SCH (21:52)
[2020-12-05] VITALS: BP 114/73
[2020-12-05 04:00] VITALS: BP 124/77
[2020-12-05] MEDS: CLOPIDOGREL 75MG TABLET PO SCH (08:55)
[2020-12-05] MEDS: FAMOTIDINE 20MG TABLET PO SCH ×2 (08:55→21:47)
[2020-12-05] MEDS: ASCORBIC ACID 500 MG TABLET PO SCH ×2 (08:55→21:47)
[2020-12-05] MEDS: ZINC SULFATE 220 MG ( 50 ) CAPSULE PO SCH (08:55)
[2020-12-05] MEDS: CHOLECALCIFEROL (D3) 1000 UNIT TABLET PO SCH (08:55)
[2020-12-05] MEDS: ONDANSETRON HCL 4MG/2ML INJ IV PRN (10:13)
[2020-12-05] MEDS: ENOXAPARIN 40MG/0.4ML SYR SUBCUT SCH (12:32)
[2020-12-05 16:00] VITALS: BP 115/74
[2020-12-05 20:00] VITALS: BP 97/72
[2020-12-05] MEDS: ATORVASTATIN CALCIUM 10MG TABLET PO SCH (21:47)
[2020-12-06] VITALS (7 sets, daily range): BP systolic 101–121; BP diastolic 69–88
[2020-12-06] MEDS: CLOPIDOGREL 75MG TABLET PO SCH (08:12)
[2020-12-06] MEDS: ZINC SULFATE 220 MG ( 50 ) CAPSULE PO SCH (08:12)
[2020-12-06] MEDS: ASCORBIC ACID 500 MG TABLET PO SCH ×2 (08:12→21:40)
[2020-12-06] MEDS: CHOLECALCIFEROL (D3) 1000 UNIT TABLET PO SCH (08:12)
[2020-12-06] MEDS: FAMOTIDINE 20MG TABLET PO SCH ×2 (09:18→21:40)
[2020-12-06] MEDS: ONDANSETRON HCL 4MG/2ML INJ IV PRN (10:06)
[2020-12-06] MEDS: ENOXAPARIN 40MG/0.4ML SYR SUBCUT SCH (11:40)
[2020-12-06] MEDS ORDERED: GADOTERATE MEGLUMINE 5 MMOL/10 ML VIAL IV ONE (19:24)
[2020-12-06] MEDS: ATORVASTATIN CALCIUM 10MG TABLET PO SCH (21:40)
[2020-12-07] VITALS: BP 100/65
[2020-12-07 04:00] VITALS: BP 100/63
[2020-12-07 08:00] VITALS: BP 113/69
[2020-12-07] MEDS: ASCORBIC ACID 500 MG TABLET PO SCH (08:59)
[2020-12-07] MEDS: CLOPIDOGREL 75MG TABLET PO SCH (08:59)
[2020-12-07] MEDS: FAMOTIDINE 20MG TABLET PO SCH (08:59)
[2020-12-07] MEDS: ZINC SULFATE 220 MG ( 50 ) CAPSULE PO SCH (08:59)
[2020-12-07] MEDS: CHOLECALCIFEROL (D3) 1000 UNIT TABLET PO SCH (08:59)
[2020-12-07] MEDS: ONDANSETRON HCL 4MG/2ML INJ IV PRN (09:00)
[2020-12-07 12:25] VITALS: BP 111/74
[2020-12-07] MEDS: ENOXAPARIN 40MG/0.4ML SYR SUBCUT SCH (12:42)
[2020-12-07 13:00] VITALS: BP 111/74
== END 2020-12-07 15:05 | DRG 125 ==
LOC: ER 14:24 → 8WST 18:49 → ENRESERV 21:38
PROVIDERS: ADMIT Internal Medicine; ATTEND Internal Medicine
DX: H54.3 Unqualified visual loss, both eyes (principal); E44.1 Mild protein-calorie malnutrition; D63.8 Anemia in other chronic diseases classified elsewhere; E78.00 Pure hypercholesterolemia, unspecified; I25.10 Atherosclerotic heart disease of native coronary artery without angina pectoris; I10 Essential (primary) hypertension; M48.02 Spinal stenosis, cervical region; Z68.26 Body mass index [BMI] 26.0-26.9, adult; Z88.2 Allergy status to sulfonamides; I69.398 Other sequelae of cerebral infarction; Z88.5 Allergy status to narcotic agent; Z79.899 Other long term (current) drug therapy; Z79.82 Long term (current) use of aspirin; Z79.02 Long term (current) use of antithrombotics/antiplatelets; I25.2 Old myocardial infarction
CPT/HCPCS: 36415; 70496; 70498; 70543; 70551; 71045; 80053; 80061; 82550; 82553; 82607; 82746; 83036; 83540; 83550; 83721; 83735; 84100; 84484; 85025; 90732; 93005; 93880; 93970; 99285; A9577; C1893; J1650; J2405; Q9967

== ENCOUNTER 2022-07-19 17:40 | Inpatient (IN) | payer MEDICARE, MEDICAID ==
[~2022-07-19] VITALS: Ht 177.8 cm; Wt 73.7 kg
[2022-07-19 19:10] LABS: BASOPHILS % 0.7 % (0.0-2.0); EOSINOPHILS % 3.1 % (0.0-5.0); HEMATOCRIT. 36.8 % (36.0-48.0); HEMOGLOBIN. 11.9 g/dL (12.0-16.0); LYMPHOCYTES % 35.3 % (20.0-50.0); MEAN CORPUSCULAR HEMOGLOBIN 26.3 pg (28.0-32.0); MEAN CORPUSCULAR VOLUME 81.2 fL (81.0-99.0); MONOCYTES % 7.4 % (2.0-8.0); NEUTROPHILS % 53.5 % (40.0-76.0); PLATELET 388 x1000/uL (130-400); RED BLOOD CELL COUNT 4.53 mill/uL (4.2-5.4); RED CELL DISTRIBUTION WIDTH 14.4 % (11.6-14.6)
[2022-07-19 19:19] LABS: CHLORIDE 109 mEq/L (98-107); PROTHROMBIN TIME 10.6 sec (9.6-11.0)
[2022-07-19] MEDS ORDERED: SODIUM CHLORIDE 0.9% 1,000 ML IV ONE (21:15)
[2022-07-19] MEDS ORDERED: CLONIDINE 0.1MG TABLET PO PRN (22:00)
[2022-07-19] MEDS ORDERED: DOCUSATE SODIUM 100MG CAPSULE PO PRN (22:00)
[2022-07-19] MEDS ORDERED: MAGNESIUM/ALUMINUM HYDROXIDE/SIMETHICONE 30ML UDC PO PRN (22:00)
[2022-07-19] MEDS ORDERED: GUAIFENESIN 200MG/10ML SUGAR FREE UDC PO PRN (22:00)
[2022-07-19] MEDS ORDERED: IPRATROPIUM/ALBUTEROL 0.5-3(2.5)MG/3ML NEB HHN PRN (22:00)
[2022-07-19] MEDS ORDERED: ACETAMINOPHEN 325MG TABLET PO PRN (22:00)
[2022-07-19] MEDS ORDERED: ONDANSETRON HCL 4MG/2ML INJ IV PRN (22:00)
[2022-07-19 22:58] LABS: FOLIC ACID (FOLATE) SERUM 4.1 ng/mL (>5.38)
[2022-07-19] MEDS: SODIUM CHLORIDE 0.9% 1,000 ML IV SCH (23:11)
[2022-07-20 00:06] LABS: D-DIMER 0.37 mg/L FEU (<0.50); PROTHROMBIN TIME 10.7 sec (9.6-11.0)
[2022-07-20 00:36] LABS: CREATINE KINASE 66 IU/L (26-192); CREATINE KINASE MB FRACTION < 1.0 ng/mL (0.5-3.6)
[2022-07-20 04:44] LABS: CHLORIDE 114 mEq/L (98-107)
[2022-07-20 04:51] LABS: CREATINE KINASE 65 IU/L (26-192); CREATINE KINASE MB FRACTION < 1.0 ng/mL (0.5-3.6)
[2022-07-20 05:01] LABS: HDL CHOLESTEROL 38 mg/dL (40-59); LDL CHOLESTEROL 70 mg/dL (5-100); T4 FREE 1.09 ng/dL (0.76-1.46)
[2022-07-20 05:07] LABS: BASOPHILS % 0.4 % (0.0-2.0); EOSINOPHILS % 2.7 % (0.0-5.0); HEMATOCRIT. 36.1 % (36.0-48.0); HEMOGLOBIN. 11.9 g/dL (12.0-16.0); LYMPHOCYTES % 37.3 % (20.0-50.0); MEAN CORPUSCULAR HEMOGLOBIN 27.1 pg (28.0-32.0); MEAN CORPUSCULAR VOLUME 82.2 fL (81.0-99.0); MEAN PLATELET VOLUME 7.8 fl (7.4-10.4); MONOCYTES % 7.7 % (2.0-8.0); NEUTROPHILS % 51.9 % (40.0-76.0); PLATELET 362 x1000/uL (130-400); RED BLOOD CELL COUNT 4.39 mill/uL (4.2-5.4)
[2022-07-20] MEDS: PANTOPRAZOLE SODIUM 40 MG/VIAL IV SCH (09:17)
[2022-07-20] MEDS: ACETAMINOPHEN 325MG TABLET PO PRN ×3 (09:17→22:30)
[2022-07-20] MEDS: SODIUM CHLORIDE 0.9% 1,000 ML IV SCH (10:15)
[2022-07-20] MEDS ORDERED: KETOROLAC 15MG/ML VIAL IV NR (14:15)
[2022-07-20] MEDS ORDERED: BISACODYL 5MG TABLET PO NR (14:15)
[2022-07-20] MEDS ORDERED: DEXT 5%/0.45% NACL 1000ML 1,000 ML IV ONE (14:30)
[2022-07-20] MEDS: SENNOSIDES/DOCUSATE SOD 8.6/50MG TABLET PO SCH (22:15)
[2022-07-21] VITALS (8 sets, daily range): BP systolic 97–135; BP diastolic 52–77
[2022-07-21 08:13] LABS: HEMATOCRIT 38.7 % (36.0-48.0); HEMOGLOBIN 12.6 g/dL (12.0-16.0); MEAN CORPUSCULAR HEMOGLOBIN 26.6 pg (28.0-32.0); MEAN CORPUSCULAR VOLUME 81.6 fL (81.0-99.0); PLATELET 368 x1000/uL (130-400); RED BLOOD CELL COUNT 4.75 mill/uL (4.2-5.4); RED CELL DISTRIBUTION WIDTH 14.7 % (11.6-14.6)
[2022-07-21 08:29] LABS: CHLORIDE 110 mEq/L (98-107)
[2022-07-21 08:33] LABS: PHOSPHORUS 3.1 mg/dL (2.5-4.9)
[2022-07-21] MEDS: PANTOPRAZOLE SODIUM 40 MG/VIAL IV SCH (09:37)
[2022-07-21] MEDS ORDERED: LACTULOSE 20G/30ML UDC PO NR (14:00)
[2022-07-21] MEDS: SENNOSIDES/DOCUSATE SOD 8.6/50MG TABLET PO SCH (21:17)
[2022-07-21] MEDS: ACETAMINOPHEN 325MG TABLET PO PRN (21:20)
[2022-07-22] VITALS: BP 106/74
[2022-07-22] MEDS: ACETAMINOPHEN 325MG TABLET PO PRN (02:19)
[2022-07-22 04:00] VITALS: BP 108/70
[2022-07-22 08:00] VITALS: BP 108/72
[2022-07-22] MEDS ORDERED: TRAMADOL 50MG TABLET PO SCH (08:00)
[2022-07-22] MEDS: PANTOPRAZOLE SODIUM 40 MG/VIAL IV SCH (08:11)
[2022-07-22 08:13] VITALS: BP 108/70
== END 2022-07-22 09:00 | DRG 760 ==
LOC: ER 17:40 → MICUSO 21:32 → 6EST 07-21 00:30 → 3WST 07-21 05:54
PROVIDERS: ADMIT Internal Medicine; ATTEND Internal Medicine
DX: N95.0 Postmenopausal bleeding (principal); E44.1 Mild protein-calorie malnutrition; N93.8 Other specified abnormal uterine and vaginal bleeding; I25.10 Atherosclerotic heart disease of native coronary artery without angina pectoris; C54.1 Malignant neoplasm of endometrium; I10 Essential (primary) hypertension; Z20.822 Contact with and (suspected) exposure to COVID-19; K52.9 Noninfective gastroenteritis and colitis, unspecified; K56.41 Fecal impaction; N21.0 Calculus in bladder; N20.0 Calculus of kidney; Z88.2 Allergy status to sulfonamides; Z88.8 Allergy status to other drugs, medicaments and biological substances; Z68.23 Body mass index [BMI] 23.0-23.9, adult; Z88.5 Allergy status to narcotic agent; Z80.0 Family history of malignant neoplasm of digestive organs
CPT/HCPCS: 36415; 71045; 74018; 74176; 76700; 76856; 80048; 80053; 80061; 82550; 82553; 82607; 82652; 82728; 82746; 83036; 83540; 83550; 83735; 83880; 84100; 84439; 84443; 84481; 84484; 85025; 85027; 85379; 86850; 86900; 87426; 87804; 99285; C9113; J1885; J7030